=== PATIENT | male | born 1960 | race Caucasian/White ===

== ENCOUNTER 2018-08-07 09:43 | Day surgery (SDC) | payer OTHER ==
[~2018-08-07] VITALS: Ht 195.6 cm; Wt 95.3 kg
[2018-08-07] MEDS ORDERED: METF850T PO (11:34)
[2018-08-07] MEDS ORDERED: ALOG12.52 PO (11:34)
[2018-08-07] MEDS ORDERED: GLIP5TAB4 PO (11:34)
[2018-08-07] MEDS ORDERED: DEXAMETHASONE 4 MG/ML VIAL ONE (11:54)
[2018-08-07] MEDS ORDERED: KETOROLAC 30 MG/ML VIAL ONE (11:54)
[2018-08-07] MEDS ORDERED: PROPOFOL 200 MG/20 ML VIAL IV ONE (11:54)
[2018-08-07] MEDS ORDERED: DESFLURANE 240 ML BTL INH ONE (11:54)
[2018-08-07] MEDS ORDERED: ONDANSETRON 4 MG/2 ML VIAL ONE (11:54)
[2018-08-07] MEDS ORDERED: LIDOCAINE 1% 500 MG/50 ML VIAL ONE (12:04)
[2018-08-07] MEDS ORDERED: BUPIVACAINE-MPF 0.25% 30 ML VIAL INJ ONE (12:05)
[2018-08-07] MEDS ORDERED: fentaNYL 0.05 MG/ML VIAL ONE (12:06)
[2018-08-07] MEDS ORDERED: MORPHINE SULFATE 2 MG/ML SYR IVP PRN (13:30)
[2018-08-07] MEDS ORDERED: MORPHINE SULFATE 4 MG/ML SYR IV PRN (13:30)
[2018-08-07] MEDS ORDERED: HYDROmorphone 1 MG/ML AMP IVP PRN (13:30)
[2018-08-07] MEDS ORDERED: ONDANSETRON 4 MG/2 ML VIAL IV PRN (13:30)
== END 2018-08-07 14:30 | disposition home or self-care (01) ==
LOC: MDS 09:43 → MMU 09:43 → MDS 14:30
PROVIDERS: ATTEND Surgery
DX: S60.552A Superficial foreign body of left hand, initial encounter (principal); S90.551A Superficial foreign body, right ankle, initial encounter; X58.XXXA Exposure to other specified factors, initial encounter; Y93.89 Activity, other specified; Y92.89 Other specified places as the place of occurrence of the external cause; Y99.8 Other external cause status; I10 Essential (primary) hypertension; E78.5 Hyperlipidemia, unspecified; E11.9 Type 2 diabetes mellitus without complications; Z98.890 Other specified postprocedural states
CPT/HCPCS: 10120; 76881; 88300; J0690; J1100; J1885; J2001; J2405; J2704; J3010; J3490; J7060